=== PATIENT | female | born 1950 | race Caucasian/White ===

== ENCOUNTER 2019-01-11 10:46 | Emergency (ER) | payer MEDICARE, OTHER ==
[~2019-01-11] VITALS: Ht 167.6 cm; Wt 91.0 kg
[~2019-01-11 10:46] MED LIST: ACET325T33 PO; NAPR-985 PO
[2019-01-11 10:49] VITALS: Ht 167.6 cm; Wt 91.0 kg
[2019-01-11 15:18] VITALS: BP 186/97; PULSE 91; RESP 18
--- NOTE | 2019-01-11 15:26 | ERD ---
ER Documentation Chief Complaint Chief Complaint HEAD PAIN DUE TO MECAHNICAL FALL 3 DAYS AGO; FEELS DIZZY ; NO KO HPI 68-year-old female presenting with headache after a fall 3 days ago. Patient fell forward and hit the front of her head on the closet. States she feels nauseous and dizzy with occasional shortness of breath. Denies any loss of consciousness and denies vomiting. Has not taken medications for her symptoms. Denies other medical problems. Surgical history denies. Social history denies. NKDA ROS All systems reviewed and are negative except as per history of present illness. Medications Home Meds Active Scripts Acetaminophen* (Tylenol*) 325 Mg Tablet, 2 TAB PO Q6 PRN for PAIN AND OR ELEVATED TEMP, #20 TAB Prov:BLOSSOM VAZQUEZ PA-C 01/11/19 Reported Medications Naproxen* (Naprosyn*) 500 Mg Tablet, 500 MG PO BID 01/10/12 Allergies Allergies: Coded Allergies: No Known Allergy (Unverified , 01/10/12) PMhx/Soc History of Surgery: Yes (cholecystectomy, hemorroidectomy) Anesthesia Reaction: No Hx Neurological Disorder: No Hx Respiratory Disorders: No Hx Cardiac Disorders: No Hx Psychiatric Problems: No Hx Miscellaneous Medical Probl: No Hx Alcohol Use: No Hx Substance Use: No Hx Tobacco Use: No FmHx Family History: No diabetes, No coronary disease, No other Physical Exam Vitals Vital Signs Date Temp Pulse Resp B/P (MAP) Pulse Ox O2 O2 Flow FiO2 Time Delivery Rate 01/11/19 97.6 110 24 201/107 98 10:49 (138) Physical Exam GENERAL: The patient is well-appearing, well-nourished, in no acute distress HEENT: Atraumatic. Conjunctivae are pink. Pupils equal, round, and reactive to light. There is no scleral icterus. Tympanic membranes clear bilaterally. Oropharynx clear. NECK: C-spine is soft and supple. There is no meningismus. There is no cervical lymphadenopathy. CHEST: Clear to auscultation bilaterally. There are no rales, wheezes or rhonchi. HEART: Regular rate and rhythm. No murmurs, clicks, rubs or gallops. EXTREMITIES: Equal pulses bilaterally. There is no peripheral clubbing, cyanosis or edema. No focal swelling or erythema. Full range of motion. NEUROLOGIC: Alert and oriented. Cranial nerves II through XII intact. Motor strength in all 4 extremities with 5 out of 5 strength. Sensation grossly intact. Normal speech and gait. SKIN: There is no apparent rash or petechiae. The skin is warm and dry. Procedures/MDM MDM: 68-year-old female presenting with headache after fall. I have low suspicion for intracranial hemorrhage or neuro deficit. I have low suspicion for brain abnormality. Patient vitals are improved at the time of discharge. Patient is recommended follow-up with primary care for her high blood pressure however I do not feel there is an emergent condition at this time. Patient is discharged with strict ER precautions and told to follow-up with primary care within 1 to 2 days for close evaluation. All questions answered at discharge Departure Diagnosis: Primary Impression: Fall Condition: Stable Patient Instructions: Fall, Mechanical Referrals: [facility] YOU HAVE RECEIVED A MEDICAL SCREENING EXAM AND THE RESULTS INDICATE THAT YOU DO NOT HAVE A CONDITION THAT REQUIRES URGENT TREATMENT IN THE EMERGENCY DEPARTMENT. FURTHER EVALUATION AND TREATMENT OF YOUR CONDITION CAN WAIT UNTIL YOU ARE SEEN IN YOUR DOCTORS OFFICE WITHIN THE NEXT 1-2 DAYS. IT IS YOUR RESPONSIBILITY TO MAKE AN APPOINTMENT FOR FOLOW-UP CARE. IF YOU HAVE A PRIMARY DOCTOR --you should call your primary doctor and schedule an appointment IF YOU DO NOT HAVE A PRIMARY DOCTOR YOU CAN CALL OUR PHYSICIAN REFERRAL HOTLINE AT IF YOU CAN NOT AFFORD TO SEE A PHYSICIAN YOU CAN CHOSE FROM THE FOLLOWING [facility] CLINICS [facility] [address] [facility]. [facility] [address] [facility] [facility] [address] [facility] [facility] [address] [facility]. [facility] [address] [facility]. [facility]. [address] Additional Instructions: FOLLOW UP WITH YOUR PRIMARY CARE PHYSICIAN TOMORROW.Return to this facility if you are not improving as expected. BLOSSOM VAZQUEZ PA-C Jan 11, 2019 15:26
== END 2019-01-11 15:19 | disposition home or self-care (01) ==
LOC: FTE 10:46
DX: R51 Headache (principal)
CPT/HCPCS: 70450